=== PATIENT | female | born 1945 | race Two or more races ===

== ENCOUNTER 2022-12-12 13:34 | Emergency (ER) | payer OTHER ==
[~2022-12-12] VITALS: Ht 152.4 cm; Wt 68.9 kg
[2022-12-12] MEDS ORDERED: SYNTHROID75 MCG PO (13:59)
[2022-12-12] MEDS ORDERED: COZAAR100 MG PO (14:00)
[2022-12-12] MEDS ORDERED: CLORAZEPATE D3.75 MG PO (14:00)
[2022-12-12] MEDS ORDERED: PANTOPRAZOLE SO20 MG PO (14:00)
[2022-12-12] MEDS ORDERED: PROSCAR5 MG PO (14:00)
[2022-12-12] MEDS ORDERED: MULTI VITAMIN1 EACH PO (14:00)
[2022-12-12] MEDS ORDERED: LATANOPROST2.5 ML OP (14:01)
[2022-12-12] MEDS ORDERED: LIPOFEN150 MG PO (14:01)
[2022-12-12] MEDS ORDERED: ATORVASTATIN CA40 MG PO (14:01)
[2022-12-12] MEDS ORDERED: FOLIC ACID20 MG PO (14:02)
[2022-12-12] MEDS ORDERED: RAYOS2 MG PO (14:03)
[2022-12-12] MEDS ORDERED: METHOTREXATE2.5 MG PO (14:03)
== END 2022-12-12 17:00 | disposition home or self-care (01) ==
LOC: ER 13:34
DX: M94.0 Chondrocostal junction syndrome [Tietze] (principal); J44.9 Chronic obstructive pulmonary disease, unspecified; I10 Essential (primary) hypertension; E03.9 Hypothyroidism, unspecified; F41.8 Other specified anxiety disorders